=== PATIENT | male | born 1985 | race Caucasian/White ===

== ENCOUNTER → 2017-03-21 | Outpatient (CLI) | payer OTHER ==
--- NOTE | 2017-03-21 17:35 | US ---
EXAMINATION TYPE: US scrotum with doppler. Grayscale and color Doppler Duplex imaging performed of t he scrotum. 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 Lump and pain right testicle x 1 month EXAM MEASUREMENTS: TESTICLES: Right Testicle: 5.0 x 2.3 x 3.3 cm Left Testicle: 5.1 x 2.3 x 3.1 cm EPIDIDYMIS HEAD: Right Epididymis: 1.5 cm Left Epididymis: 1.2 cm Doppler performed to assess for testicular vascularity; good bilateral color flow and waveforms are s een. There is no evidence of testicular torsion. Presence of hydroceles: yes, fluid collection lateral to right testicle = 3.9cm and medial to left t esticle = 3.3cm Presence of varicoceles: no Cystic area left epididymis = 0.5cm IMPRESSION: No testicular torsion or mass. Bilateral hydroceles. Small left-sided epididymal cyst.
== END ==
LOC: RADUSWWP 16:56
PROVIDERS: ATTEND Family Medicine
DX: N43.3 Hydrocele, unspecified (principal); N50.3 Cyst of epididymis
CPT/HCPCS: 76870; 93975

== ENCOUNTER 2018-12-20 17:41 | Emergency (ER) | payer BC, OTHER ==
[2018-12-20 17:47] VITALS: BP 172/124; PULSE 73; RESP 18; TEMP 97.7
[2018-12-20] MEDS ORDERED: DIPH,PERTUS(ACELL)TETVAC-LF 0.5 ML VIAL IM ONE (17:51)
[2018-12-20] MEDS ORDERED: HYDROcodone/APAP 5-325MG 1 EACH TAB PO STA (17:56)
--- NOTE | 2018-12-20 18:06 | ED ---
Lower Extremity Injury HPI - General Chief Complaint: Extremity Injury, Lower Stated Complaint: lt toe injury Time Seen by Provider: 12/20/18 17:49 Source: patient, family Mode of arrival: ambulatory Limitations: no limitations - History of Present Illness Initial Comments: 33yo male presenting today for cc of left great toe pain. Patient states that he stubbed toe nail on a rim of tire when attempted to remove a lug nut. Patient states the toenail is only partially removed. Patient is able to weight bear. Patient states tetanus UTD. No falls, no numbness, tingling, loss of sensation, or limitations of ROM of digit affected. Denies foot pain. Remaining ROS (-). Upon arrival patient appears well, but uncomfortable. - Related Data Previous Rx's Medication Instructions Recorded Acetaminophen-Codeine 300-30mg 1 tab PO Q4-6H PRN #15 tablet 04/28/14 [Tylenol w/codeine #3] Allergies Allergy/AdvReac Type Severity Reaction Status Date / Time No Known Allergies Allergy Verified 04/28/14 11:22 Review of Systems ROS Statement: Those systems with pertinent positive or pertinent negative responses have been documented in the HPI. ROS Other: All systems not noted in ROS Statement are negative. Past Medical History Past Medical History: Hypertension Additional Past Medical History / Comment(s): Solitary kidney History of Any Multi-Drug Resistant Organisms: None Reported Past Surgical History: Orthopedic Surgery Past Psychological History: No Psychological Hx Reported Smoking Status: Light tobacco smoker Past Alcohol Use History: Occasional Past Drug Use History: None Reported General Exam - General Exam Comments Initial Comments: General: The patient is awake and alert, in no distress, and does not appear acutely ill. Eye: +3 mm pupils are equal, round and reactive to light, extra-ocular movements are intact. No nystagmus. There is normal conjunctiva bilaterally. No signs of icterus. Ears, nose, mouth and throat: There are moist mucous membranes and no oral lesions. Neck: The neck is supple, there is no tenderness or JVD. Cardiovascular: There is a regular rate and rhythm. No murmur, rub or gallop is appreciated. Respiratory: Lungs are clear to auscultation, respirations are non-labored, breath sounds are equal. No wheezes, stridor, rales, or rhonchi. Musculoskeletal: Normal ROM, no tenderness. Strength 5/5. Sensation intact. Pulses equal bilaterally 2+. Neurological: A&O x 3. CN II-XII intact, There are no obvious motor or sensory deficits. Coordination appears grossly intact. Speech is normal. Skin: Skin is warm and dry and no rashes. Partially avulsed left great toenail 3/4 of nail plate is attached. no noted nailbed lacerations. Patient can full range at the left great toe full sensation no active bleeding. Psychiatric: Cooperative, appropriate mood & affect, normal judgment. Limitations: no limitations Course Vital Signs 12/20/18 17:44 Temperature 97.7 F Pulse Rate 73 Respiratory 18 Rate Blood Pressure 172/124 O2 Sat by Pulse 98 Oximetry Medical Decision Making - Medical Decision Making 33yo male presenting for toenail avulsion. NO ossesous injury on plain films. pt NV intact. Patient nail plate is 3/4 attached to nailbed. Bleeding controlled. Area cleaned extensively with sterile water and iodine. Patient given norco for pain in ER. Patient provided work note. Patient return parameters discussed and nail care. Patient evaluated by Dr. Montoya agreeable with care plan and discharge. Disposition Clinical Impression: Nail avulsion, toe, Pain of left great toe Disposition: HOME SELF-CARE Condition: Good Instructions (If sedation given, give patient instructions): Nail Avulsion (ED) Additional Instructions: Please use medication as discussed. Please follow-up with family doctor in the next 2 days of symptoms have not improved. Please return to emergency room if the symptoms increase or worsen or for any other concerns. Is patient prescribed a controlled substance at d/c from ED?: No Referrals: Krishna Jimenez MD [Primary Care Provider] - 1-2 days Time of Disposition: 18:27
--- NOTE | 2018-12-20 18:10 | XR ---
EXAMINATION TYPE: XR foot complete LT DATE OF EXAM: 12/20/2018 CLINICAL HISTORY: Pain after stepping injury. TECHNIQUE: Frontal, lateral, and oblique images of the left foot are obtained. COMPARISON: None FINDINGS: There is no acute fracture/dislocation evident in the left foot with particular attention to the left first toe in the area of clinical concern. The joint spaces in the left foot appear with in normal limits. Mild diffuse subcutaneous edema is present along the plantar surface. IMPRESSION: There is no acute fracture or dislocation in the left foot.
== END 2018-12-20 18:47 | disposition home or self-care (01) ==
LOC: EC 17:41
DX: S91.202A Unspecified open wound of left great toe with damage to nail, initial encounter (principal); F17.200 Nicotine dependence, unspecified, uncomplicated; W22.8XXA Striking against or struck by other objects, initial encounter; Y93.89 Activity, other specified
CPT/HCPCS: 99283

== ENCOUNTER 2020-08-27 12:13 | Emergency (ER) | payer BC ==
[2020-08-27 12:23] VITALS: BP 119/76; TEMP 98.8
--- NOTE | 2020-08-27 12:56 | ED ---
SOB HPI - General Chief Complaint: Shortness of Breath Stated Complaint: SOB Time Seen by Provider: 08/27/20 12:40 Source: patient Mode of arrival: ambulatory Limitations: no limitations - History of Present Illness Initial Comments: Is a 35-year-old male with a history of hypertension who presents emergency department for shortness of breath for the last 2 days. The patient states that he developed a headache on the of this month. He started to feel little bit lightheaded and overall generalized malaise. He states that 2 days ago started developing some shortness of breath that he states is constant. States that it does get worse with exertion. He denies any chest pain associated with this. No fevers or chills. He does admit to a cough that is nonproductive. No sore throat. No nausea, vomiting, or diarrhea. Does admit to a decreased appetite. He states his was positive for Covid 08/20. Otherwise he denies any other acute complaints. No lower chrie edema or swelling. No history of PE or DVT. Denies any other acute complaints this time. - Related Data Home Medications Medication Instructions Recorded Confirmed Valsartan/Hydrochlorothiazide 1 tab PO DAILY 08/27/20 08/27/20 [Valsartan-Hctz 160-25 mg Tab] Allergies Allergy/AdvReac Type Severity Reaction Status Date / Time No Known Allergies Allergy Verified 08/27/20 13:55 Review of Systems ROS Statement: Those systems with pertinent positive or pertinent negative responses have been documented in the HPI. ROS Other: All systems not noted in ROS Statement are negative. Past Medical History Past Medical History: Hypertension Additional Past Medical History / Comment(s): Solitary kidney History of Any Multi-Drug Resistant Organisms: None Reported Past Surgical History: Orthopedic Surgery Additional Past Surgical History / Comment(s): rt shoulder Past Psychological History: No Psychological Hx Reported Smoking Status: Current some day smoker Past Alcohol Use History: Occasional Past Drug Use History: None Reported General Exam - General Exam Comments Initial Comments: Constitutional: Awake alert Appears comfortable Head: Normocephalic atraumatic ENT: Oral mucosa appears moist Eyes: no conjunctival injection No scleral icterus EOMI Neck: No JVD Supple Heart: Regular rate rhythm normal S1-S2 no murmurs Lungs: Clear to auscultation bilaterally No wheezing No rales Abdomen: Soft nondistended nontender Extremities: Non edematous DP pulses intact Radial pulses intact Neuro: A&Ox3 No focal neurologic deficits Psych: Appropriate mood and affect Limitations: no limitations Course Vital Signs 08/27/20 08/27/20 08/27/20 12:19 13:46 14:26 Temperature 98.8 F Pulse Rate 94 88 Respiratory 22 18 Rate Blood Pressure 119/76 O2 Sat by Pulse 99 98 100 Oximetry - Reevaluation(s) Reevaluation #1: EKG showing normal sinus rhythm with rate of 84. There is no abnormal ST 7 changes or T-wave inversions. QTC is 427. Other intervals normal. No ectopy. 08/27/20 13:27 Medical Decision Making - Medical Decision Making This is a 35-year-old male who presents emergency department for the above symptoms. Patient was nontoxic in appearance. I did get him up and walked down the jaime and he did not have any oxygen desaturations. Clinically the patient appeared well. Chest x-ray was unremarkable. EKG was unremarkable as well. Coban did come back positive. The patient does not meet any criteria for balance of the map infusion at this time. Patient was advised to slate picker some vitamin D in sink and [id number] cough medications to use as needed. Told to return emergency Department if he felt a this symptoms were changing or worsening in any way. All questions were answered. - Lab Data Lab Results 08/27/20 Range/Units 13:18 Coronavirus (PCR) Detected A (Not Detectd) Disposition Clinical Impression: COVID-19, Acute pulmonary edema Disposition: HOME SELF-CARE Condition: Stable Instructions (If sedation given, give patient instructions): Coronavirus Disease 2019 (COVID-19) Is patient prescribed a controlled substance at d/c from ED?: No Referrals: Brad Mraio MD [Primary Care Provider] - 1-2 days
--- NOTE | 2020-08-27 13:18 | XR ---
EXAMINATION TYPE: XR chest 1V DATE OF EXAM: 08/27/2020 COMPARISON: 04/28/2014 INDICATION: Short of breath vomiting and fever TECHNIQUE: Single frontal view of the chest is obtained. FINDINGS: The heart size is normal. The pulmonary vasculature is normal. The lungs are clear. IMPRESSION: 1. No acute pulmonary process.
[2020-08-27 14:29] VITALS: PULSE 88; RESP 18
== END 2020-08-27 14:26 | disposition home or self-care (01) ==
LOC: EC 12:13
DX: U07.1 COVID-19 (principal); J81.0 Acute pulmonary edema; I10 Essential (primary) hypertension; Z79.899 Other long term (current) drug therapy
CPT/HCPCS: 71045; 87635; 93005; 99285

== ENCOUNTER → 2021-05-08 | Outpatient (CLI) | payer BC ==
--- NOTE | 2021-05-08 09:13 | MR ---
EXAMINATION TYPE: MR lumbar spine wo con DATE OF EXAM: 05/08/2021 COMPARISON: NONE HISTORY: Chronic low back pain, Lump lower lumbar-maker on area TECHNIQUE: Multiplanar, multisequence imaging of the lumbar spine is performed without IV contrast. FINDINGS: Sagittal images of the lumbar spine show vertebral body heights and alignment to appear sat isfactory. Some Multilevel disc desiccation with relative sparing of L5-S1 level but the disc space h eights are maintained. The conus medullaris is normal in position and signal ending at L1 level. Th e bone marrow signal intensity is within normal limits. Note is made of posterior disc herniation T10 -T11 level effacing the anterolateral thecal sac on the left sagittal image 9. Axial images shows lef t paracentral disc protrusion on 35. Axial images T11-T12 level to have mild broad disc bulge but the spinal canal is preserved. Axial levels lumbar spine show no significant disc herniation or spinal canal effacement. Mild facet arthropathy L5-S1 level is present. Patent bilateral neural foramina seen. Technologist lino palpable abnormality just left of midline posteriorly axial image 9 which correspo nds to the L3-L4 disc space. No suspicious solid or cystic mass or abnormal fluid collection is ident ified at this level. No suspicious skin thickening. Normal subcutaneous fat is present. Mild subcutan eous edema present on STIR images is expected. IMPRESSION: No concerning mass at area of clinical concern. Prominent disc herniation T10-T11 level. No significant disc herniation in the lumbar spine.
== END | disposition home or self-care (01) ==
LOC: RADMRIMAIN 07:40
PROVIDERS: ATTEND Family Medicine
DX: M54.50 Low back pain, unspecified (principal)
CPT/HCPCS: 72148

== ENCOUNTER → 2024-07-01 | Outpatient (CLI) | payer BC ==
--- NOTE | 2024-07-01 16:34 | US ---
EXAMINATION TYPE: US carotid duplex BILAT DATE OF EXAM: 07/01/2024 COMPARISON: NONE CLINICAL INDICATION: Male, 39 years old with history of Z82.49 I10 R42 DIZZINESS; family history of c ardiovascular disease, dizziness Additional History: R42* Dizziness TECHNIQUE: Grayscale, color Doppler and spectral Doppler evaluation of the bilateral carotid systems and vertebral arteries. Indirect Doppler criteria was utilized. FINDINGS: EXAM MEASUREMENTS: RIGHT: Peak Systolic Velocity (PSV) cm/sec ----- Right CCA: 145.0 ----- Right ICA: 127.0 ----- Right ECA: 145.1 ICA/CCA ratio: 0.9 RIGHT: End Diastole cm/sec ----- Right CCA: 52.4 ----- Right ICA: 44.6 ----- Right ECA: 36.7 LEFT: Peak Systolic Velocity (PSV) cm/sec ----- Left CCA: 130.2 ----- Left ICA: 133.4 ----- Left ECA: 133.4 ICA/CCA ratio: 1.0 LEFT: End Diastole cm/sec ----- Left CCA: 57.5 ----- Left ICA: 44.6 ----- Left ECA: 44.6 VERTEBRALS (direction of flow): Right Vertebral: Antegrade Left Vertebral: Antegrade Rhythm: Normal FLIGHT INSPECTOR NOTES: No significant stenosis seen, no plaque or intimal wall thickening Color Doppler imaging shows patency with blood flow throughout the carotid artery. Spectral waveforms are within normal limits. IMPRESSION: Right: No hemodynamically significant stenosis. Left: No hemodynamically significant stenosis. Criteria for Assigning % of Stenosis / Diameter reduction (Estimation based on the indirect measurements of the internal carotid artery velocities (ICA PSV). 1. Normal (no stenosis)=ICA PSV < 125 cm/s: ratio < 2.0: ICA EDV<40 cm/s. 2. Less than 50% stenosis=ICA PSV < 125 cm/s: ratio < 2.0: ICA EDV<40 cm/s. 3. 50 to 69% stenosis=ICA PSV of 125 to 230 cm/s: ration 2.0 ? 4.0: ICA EDV 40-100 cm/s. 4. Greater than 70% stenosis to near occlusion= ICA PSV > 230 cm/s: ratio > 4.0: ICA EDV > 100 cm/s. 5. Near occlusion= ICA PSV velocities may be low or undetectable: variable ratio and ICA EDV. 6. Total occlusion=unable to detect flow. [facility], , 07/01/2024 4:32 PM
== END | disposition home or self-care (01) ==
LOC: RADUSWWP 15:43
PROVIDERS: ATTEND Family Medicine
DX: I10 Essential (primary) hypertension (principal); R42 Dizziness and giddiness; Z82.49 Family history of ischemic heart disease and other diseases of the circulatory system
CPT/HCPCS: 93880

== ENCOUNTER → 2024-07-05 | Outpatient (CLI) | payer BC ==
--- NOTE | 2024-07-06 08:29 | MR ---
INDICATION: Patient age:Male; 39 years old; Reason for study: R42; PHH. COMPARISON: None available. TECHNIQUE: Multi planar, multi sequence imaging was performed through the brain. The patient was then given 11.5 cc of Gadobutrol intravenously and multi planar, T1 fat-saturation images were obtained. FINDINGS: The lee-white junctions, ventricular system, basal cisterns appear unremarkable. Diffusion-weighted imaging shows no evidence of restricted diffusion to suggest acute/subacute infarct. Intracranial art erial flow voids are maintained. Midline structures show no abnormality. No FLAIR signal abnormalitie s identified. The susceptibility weighted images do not reveal any evidence for micro-hemorrhage. Aft er administration of gadolinium, no abnormal enhancement is seen. The bone marrow signal is within normal limits. The paranasal sinuses and globes are unremarkable. IMPRESSION: No evidence of intracranial mass, acute/subacute infarct, or abnormal enhancement. [facility], , 07/06/2024 8:27 AM
== END ==
LOC: RADMRIMAIN 20:00
PROVIDERS: ATTEND Family Medicine
DX: R42 Dizziness and giddiness (principal)
CPT/HCPCS: 70553; A9585

== ENCOUNTER → 2024-08-09 | Outpatient (CLI) | payer BC ==
--- NOTE | 2024-08-09 18:04 | CA ---
Transthoracic Echo Report Name: Humble Tinajero Age: 39 Gender: M : 1985 Exam Date: 08/09/2024 17:08 Exam Location: [facility] Ht (in): 70 Wt (lb): 250 Ordering Physician: Brad Mario MD Attending/Referring Phys: Tameka Cade [facility] Intake Clerk Barbie Granados RDCS Procedure CPT: Indications: i10 Cardiac Hx: Technical Quality: Good Contrast 1: Total Dose (mL): Contrast 2: Total Dose (mL): MEASUREMENTS (Male / Female) Normal Values 2D ECHO LV Diastolic Diameter PLAX 5.6 cm 4.2 - 5.9 / 3.9 - 5.3 cm LV Systolic Diameter PLAX 3.5 cm IVS Diastolic Thickness 1.0 cm 0.6 - 1.0 / 0.6 - 0.9 cm LVPW Diastolic Thickness 1.0 cm 0.6 - 1.0 / 0.6 - 0.9 cm LV Relative Wall Thickness 0.4 RV Internal Dim ED PLAX 3.1 cm LA Systolic Diameter LX 3.7 cm 3.0 - 4.0 / 2.7 - 3.8 cm LV Diastolic Volume MOD 4C 110.0 cm??? LV Systolic Volume MOD 4C 46.7 cm??? LV Ejection Fraction MOD 4C 57.5 % LV Cardiac Index MOD 4C 1628.5 cm???/min???m??? LV Diastolic Length 4C 9.7 cm LV Systolic Length 4C 8.5 cm LV Diastolic Volume MOD 2C 126.2 cm??? LV Systolic Volume MOD 2C 52.2 cm??? LV Ejection Fraction MOD 2C 58.6 % LV Cardiac Index MOD 2C 1904.5 cm???/min???m??? LV Diastolic Length 2C 9.0 cm LV Systolic Length 2C 7.5 cm M-MODE Aortic Root Diameter MM 3.3 cm DOPPLER AV Peak Velocity 120.6 cm/s AV Peak Gradient 5.8 mmHg Mitral E Point Velocity 91.3 cm/s Mitral A Point Velocity 48.7 cm/s Mitral E to A Ratio 1.9 MV Deceleration Time 161.6 ms MV E' Velocity 12.3 cm/s Mitral E to MV E' Ratio 7.4 TR Peak Velocity 200.9 cm/s TR Peak Gradient 16.1 mmHg Right Ventricular Systolic Press 36.0 mmHg FINDINGS Left Ventricle Left ventricular ejection fraction is estimated at 55-60 %. Left ventricular cavity size normal. Left ventricular wall thickness normal. Normal left ventricular wall motion. Right Ventricle Normal right ventricular size and function. Mild pulmonary hypertension. Right Atrium Normal right atrial size. No right atrial thrombus or mass seen. Left Atrium Normal left atrial size. No left atrial thrombus or mass present. Mitral Valve Structurally normal mitral valve. No mitral stenosis, or prolapse.trace mitral regurgitation. Aortic Valve Trileaflet aortic valve. No aortic valve stenosis or regurgitation. Tricuspid Valve Structurally normal tricuspid valve. Trace to mild tricuspid regurgitation. Pulmonic Valve Pulmonic valve not well visualized. No pulmonic regurgitation. Pericardium No pericardial effusion. Aorta Normal size aortic root and proximal ascending aorta. CONCLUSIONS 1. Normal left ventricular size and systolic function 2. Trace mitral with trace to mild tricuspid regurgitation and mild pulmonary hypertension Previewed by: Dr. Rekha Black MD (Electronically Signed) Final Date: 09 August 2024 18:03
== END | disposition home or self-care (01) ==
LOC: RADECHMAIN 16:59
PROVIDERS: ATTEND Family Medicine
DX: I08.1 Rheumatic disorders of both mitral and tricuspid valves (principal); I10 Essential (primary) hypertension
CPT/HCPCS: 93306